=== PATIENT | female | born 1985 ===

== ENCOUNTER 2021-09-13 09:32 | Outpatient (CLI) | payer OTHER | END 2021-09-13 10:33 | disposition home or self-care (01) | LOC: PRENATAL 09:32 | PROVIDERS: ATTEND Obstetrics & Gynecology Maternal & Fetal Medicine | DX: O36.80X0 Pregnancy with inconclusive fetal viability, not applicable or unspecified (principal); Z3A.14 14 weeks gestation of pregnancy ==

== ENCOUNTER 2021-11-03 12:52 | Outpatient (CLI) | payer OTHER | END 2021-11-03 13:55 | disposition home or self-care (01) | LOC: PRENATAL 12:52 | PROVIDERS: ATTEND Obstetrics & Gynecology Maternal & Fetal Medicine | DX: O35.0XX0 Maternal care for (suspected) central nervous system malformation in fetus, not applicable or unspecified (principal); O35.3XX0 Maternal care for (suspected) damage to fetus from viral disease in mother, not applicable or unspecified; O09.529 Supervision of elderly multigravida, unspecified trimester; O34.219 Maternal care for unspecified type scar from previous cesarean delivery; Z3A.21 21 weeks gestation of pregnancy ==

== ENCOUNTER 2021-12-01 19:13 | Inpatient (IN) | payer OTHER ==
[~2021-12-01] VITALS: Ht 154.9 cm; Wt 60.8 kg
[2021-12-01] MEDS ORDERED: PRENATAL TABLE1 EAC1 PO (20:14)
[2021-12-01] MEDS ORDERED: IRON325 MG (20:14)
== END 2021-12-03 14:17 | disposition home or self-care (01) | DRG 833 ==
LOC: LDR 19:13 → OB/GYN 12-02 16:41
PROVIDERS: ADMIT Student in an Organized Health Care Education/Training Program; ATTEND Student in an Organized Health Care Education/Training Program
PROC: 4A1HXCZ Monitoring of Products of Conception, Cardiac Rate, External Approach (ICD-10-PCS; principal; 2021-12-01)
PROC: BY4CZZZ Ultrasonography of Second Trimester, Single Fetus (ICD-10-PCS; 2021-12-02)
PROC: BU4CZZZ Ultrasonography of Uterus and Ovaries (ICD-10-PCS; 2021-12-02)
DX: O46.8X2 Other antepartum hemorrhage, second trimester (principal); O26.842 Uterine size-date discrepancy, second trimester; O26.852 Spotting complicating pregnancy, second trimester; O34.211 Maternal care for low transverse scar from previous cesarean delivery; Z3A.26 26 weeks gestation of pregnancy; Z20.822 Contact with and (suspected) exposure to COVID-19

== ENCOUNTER 2022-02-17 20:25 | Inpatient (IN) | payer OTHER ==
[~2022-02-17] VITALS: Ht 154.9 cm; Wt 64.4 kg
[~2022-02-17 20:25] MED LIST: IRON325 MG; PRENATAL TABLE1 EAC1 PO
[2022-02-20] MEDS ORDERED: NAPR500T14 PO (08:25)
== END 2022-02-20 13:15 | disposition home or self-care (01) | DRG 785 ==
LOC: OB/GYN 20:25 → LDR 20:25 → OB/GYN 23:44
PROVIDERS: ADMIT Obstetrics & Gynecology; ATTEND Obstetrics & Gynecology
PROC: 0UB70ZZ Excision of Bilateral Fallopian Tubes, Open Approach (ICD-10-PCS; 2022-02-17)
PROC: 4A1HXCZ Monitoring of Products of Conception, Cardiac Rate, External Approach (ICD-10-PCS; 2022-02-17)
PROC: 10D00Z1 Extraction of Products of Conception, Low, Open Approach (ICD-10-PCS; principal; 2022-02-17 21:00)
DX: O34.211 Maternal care for low transverse scar from previous cesarean delivery (principal); Z3A.37 37 weeks gestation of pregnancy; Z37.0 Single live birth; Z20.822 Contact with and (suspected) exposure to COVID-19